=== PATIENT | male | born 1945 | race Caucasian/White ===

== ENCOUNTER → 2017-04-24 | Day surgery (SDC) | payer OTHER ==
[~2017-04-24] VITALS: Ht 170.2 cm; Wt 90.0 kg
[~2017-04-24] MED LIST: ACET-1256 PO; ACETAMINOPHEN 325 MG TAB PO PRN; ADVIN25/60 INH; ASCO250T5 PO; ATROPINE SULFATE 0.1 MG/ML 5ML SYR IV PRN; ATROPINE SULFATE 1% OP SOLN 2 ML BTL ONE; AcetylCHOLine CHL OP SOL 1:100 2 ML BTL ONE; BRIMONIDINE TART 0.2% OP SOLN PER DROP CHARGE ONE; BSS 500ML IRRIG ONE; BSS FLUSH ONE; CHOL2000 PO; DILT-115 PO; DONE10TA12 PO; DPRSCR15 TOP; DXM/4 OPL; EpHEDrine SULFATE INJ 50 MG/ML AMP IV PRN; EpINEphrine INJ 1MG/ML AMP 1 MG/ML AMP ONE; FENTANYL CITRATE INJ 50 MCG/1 ML 2 ML VIAL ONE; FERR1TAB13 PO; FLUN0.02 NAE; FOLI1TAB7 PO; HEALON 10MG/ML 0.85 ML SYR INSTIL ONE; LACTATED RINGER'S 1000ML 500 ML IV SCH; LIDOCAINE 3.5% OPH GEL PER APPLICATION CHARGE OPR SCH; LIDOCAINE 4% OP SOLN DROP CHARGE ONE; LIDOCAINE 4% OP SOLN DROP CHARGE OPR SCH; LIDOCAINE HCL 1% MPF 2 ML VIAL ONE; MIDAZOLAM HCL 1 MG/ML 2ML VIAL ONE; MOXIFLOXACIN OPH SOLN PER DROP CHARGE ONE; NMN10 PO; ONDANSETRON INJ 2 MG/ML 2 ML VIAL IV PRN; PANT40TA PO; PATIENT'S ALLERGY INFO NEEDS ENTERED SCH; POVIDONE-IODINE OP SOLN 30 ML BTL ONE; PRIM50TA29 PO; PROPARACAINE 0.5% OP SOLN PER DROP CHARGE OPR SCH; SIMV20TA2 PO; SNM/25100 PO; SODI5SOL4 OPL; TAMS0.4C38 PO; TETRACAINE HCL (OPHTH) 60 DROPS/4 ML BTL OP ONE; TOBRAMYCIN/DEXAMETHASONE OPH OINT PER APPLN CHARGE ONE; VNTHFA/IN INH; WARF5TAB90 PO; WARF7.5T PO
[2017-04-24 09:46] VITALS: Ht 170.2 cm; Wt 90.0 kg
--- NOTE | 2017-04-24 10:02 | History & Physical Bridge - [place] ---
H&P Re-Evaluation Bridge Note: I have examined the patient, reviewed the History & Physical and in the interval since the performance of the History & Physical I have noted the following changes of clinical significance: No changes noted
[2017-04-24] MEDS: MOXIFLOXACIN OPH SOLN PER DROP CHARGE OPR SCH ×3 (10:11→10:31)
--- NOTE | 2017-04-24 11:42 | Discharge Instructions-SurgCtr ---
Discharge Instructions Date of Service Apr 24, 2017. 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 Post Anesthesia Instructions: If you have had General Anesthesia or IV Sedation: * Do not drive today. * Resume driving when surgeon permits. * Do not make important decisions or sign legal documents today. * Call surgeon for: 1. Temperature elevations greater than 101 degrees F. 2. Uncontrollable pain. 3. Excessive bleeding. 4. Persistent nausea and vomiting. 5. Medication intolerance (nausea, vomiting or rash). * For nausea and vomiting use only clear liquids such as: tea, soda, bouillon until nausea subsides, then gradually increase diet as tolerated. * If you have any concerns or questions, call your surgeon's office. If physician is unavailable and it is an emergency, call 911 or go to the nearest emergency room. . Instructions / Follow-Up Instructions / Follow-Up ACTIVITY RECOMMENDATIONS: * Bedrest except for meals and bathroom (eyes to the gavin) MEDICATIONS: Resume previous medications unless instructed otherwise by your surgeon. Eye drops (today and tomorrow): Cipro - one drop in operative eye 4 times daily Dexamethasone - one drop in operative eye 4 times daily SPECIAL CARE INSTRUCTIONS: * If any problems or concerns, please call Dr. Espinoza's office at . * Keep plastic shield taped over eye to sleep at night. * Keep plastic shield taped over eye except to administer eye drops. * Keep plastic shield on until office visit the following day. FOLLOW UP VISIT: Follow-up with Dr. Espinoza in the [place] office as scheduled. If not already scheduled, please call the office at . Diet Recommendations Home Diet: resume previous diet Procedures Procedures Performed: Right Descements Stripping Automated Endothelial Keratoplasy Pending Studies Studies pending at discharge: yes List of pending studies: donor cornea rim culture Medical Emergencies . Who to Call and When: Medical Emergencies: If at any time you feel your situation is an emergency, please call 911 immediately. . Non-Emergent Contact Non-Emergency issues call your: Appointment Manager . . "Provider Documentation" section prepared by Castro Espinoza. .
--- NOTE | 2017-04-24 11:43 | [facility] Post Operative Brief Note ---
Immediate Operative Summary Operative Date Apr 24, 2017. Pre-Operative Diagnosis Right Eye Endothelial Corneal Dystrophy Post-Operative Diagnosis same Procedure(s) Performed Right Descements Stripping Automated Endothelial Keratoplasy Surgeon Dr. Rock Espinoza Brain Wave Technician Surgeon(s) 0 Estimated Blood Loss 0 Findings fuchs dystrophy right eye Specimens C&S Donor Rim Owypaeh-Kbramtrgc-Sbqv Stain Drains none Anesthesia local with sedation Complication(s) None Disposition Recovery Room / PACU
--- NOTE | 2017-04-24 12:04 | OPERATIVE REPORT ---
DATE OF OPERATION: 04/24/2017 PREOPERATIVE DIAGNOSIS: Fuchs corneal dystrophy, right eye. POSTOPERATIVE DIAGNOSIS: Same. PROCEDURE PERFORMED: Descemet stripping automated endothelial keratoplasty, right eye. COMPLICATIONS: None. ESTIMATED BLOOD LOSS: None. ANESTHESIA: Local with sedation. DESCRIPTION OF PROCEDURE: After informed consent was obtained in the holding area, attention was first turned to the donor cornea. It was placed endothelial side up on the donor trephine and trephinated with an 8.25-mm Sarah trephine by myself. It was then covered in Optisol and set aside. The patient was then brought back to the operating room, where cardiac monitoring leads and oxygen by nasal cannula was administered by anesthesia. Gentle IV sedation was given and the patient's right eye was prepped and draped in the usual sterile fashion. Wire lid speculum was placed in the right eye and the operating microscope swung into position. Using 0.12 forceps and a supersharp blade, a paracentesis port was made at the 11 o'clock position of the patient's right eye. 1% nonpreserved lidocaine was injected into the anterior chamber for anesthesia. The previously used trephine was then inked and used to екатерина the surface of the cornea for the diameter for stripping. A 2.2-mm keratome blade was then used to make a shelved clear cornea incision at the 9 o'clock position of the patient's right eye. The anterior chamber was filled with Healon and a reversed Sinskey hook was used to score and strip Descemet's membrane from within the marked area. The Descemet stripper removed the Descemet's membrane from within the area. Stromal tile shader was then used to roughen the stromal edges of the stripped area. The main incision was then widened for a total of 4 mm. An irrigation-aspiration handpiece was used to remove the viscoelastic material from the eye. The donor cornea was then placed endothelial side up on the EndoSerter and a drop of Healon was placed on it. It was retracted into the EndoSerter and then injected into the eye using the EndoSerter. It was unfolded underneath BSS and air and positioned using a reverse Sinskey hook. A complete air fill of the eye was achieved and held for 15 minutes, during which time, a 10-0 nylon suture was placed in the main incision. At the conclusion of the 15 minutes, the interface was milked using a [employer] roller and another 10 minutes elapsed. At this time, a partial air fluid exchange was done leaving behind a 60% air fill of the anterior chamber. ReSure sealant was then placed over the primary incisions as well as the paracentesis. The wire lid speculum was removed from the eye. Vigamox and TobraDex ointment were placed on the eye and the eye was shielded. The patient tolerated the procedure well and was taken to recovery area in stable condition. I attest to the content of the Intraoperative Record and any orders documented therein. Any exception s are noted below.
[2017-04-24 12:14] VITALS: TEMP 36.6
[2017-04-24 12:49] VITALS: BP 167/91; PULSE 61; O2SAT 93
--- NOTE | 2017-04-24 12:49 | Anesthesia Progress Nt - [facility] ---
Anesthesia Post Op Note Date & Time Apr 24, 2017 at 12:49 Vital Signs Pain Intensity: 0 Vital Signs Past 12 Hours Date Time Temp Pulse Resp B/P (MAP) Pulse Ox O2 Delivery O2 Flow Rate FiO2 04/24/17 12:14 36.6 69 16 168/90 (116) 92 Room Air 04/24/17 11:42 36.7 65 16 172/77 (108) 93 Room Air 04/24/17 10:29 36.6 70 20 184/68 (106) 94 Room Air Notes Mental Status: alert / awake / arousable, participated in evaluation Pt Amnestic to Procedure: Yes Nausea / Vomiting: adequately controlled Pain: adequately controlled Airway Patency, RR, SpO2: stable & adequate BP & HR: stable & adequate Hydration State: stable & adequate Anesthetic Complications: no major complications apparent
== END | disposition home or self-care (01) ==
LOC: EDSEX 08:30 → X.SURG 09:31
PROVIDERS: ATTEND Ophthalmology
DX: H18.51 Endothelial corneal dystrophy (principal); I10 Essential (primary) hypertension; E78.00 Pure hypercholesterolemia, unspecified; J44.9 Chronic obstructive pulmonary disease, unspecified; R41.3 Other amnesia; Z87.891 Personal history of nicotine dependence; N28.9 Disorder of kidney and ureter, unspecified; Z79.899 Other long term (current) drug therapy